=== PATIENT | male | born 1945 | race Caucasian/White ===

== ENCOUNTER 2018-09-10 14:58 | Outpatient (REF) | payer MEDICARE, SELFPAY ==
[2018-09-10 20:48] LABS: ALT 32 U/L (12-78); AST 25 U/L (15-37); Albumin 3.8 g/dL (3.4-5.0); Alkaline Phosphatase 57 U/L (46-116); Anion Gap 7.5 mmol/L (3-11); BUN 24 mg/dL (7-18); Bilirubin, Total 0.6 mg/dL (0.2-1.0); CO2 31.5 mmol/L (21.0-32.0); CREATININE 1.17 mg/dL (0.70-1.30); Calcium 9.5 mg/dL (8.5-10.1); Chloride 103 mmol/L (98-107); Glucose 86 mg/dL (70-100); Potassium 4.2 mmol/L (3.5-5.1); Sodium 142 mmol/L (136-145); TSH (W/Ref FT4) 1.67 uIU/mL (0.358-3.74); Total Protein 7.2 g/dL (6.4-8.2); Vitamin B12 639 pg/mL (193-986)
[2018-09-10 20:55] LABS: ESR 10 MM/HR (1-20)
[2018-09-10 21:33] LABS: C-Reactive Protein 0.07 mg/dL (0.0-0.3); Creatine Kinase 361 U/L (39-308)
[2018-09-13 10:44] LABS: PSA, Screening 2.6 ng/ml (0-6.5)
[2018-09-13 12:13] LABS: Albumin 58.6 % (55.8-66.1); Total Protein 6.9 g/dl (6.3-8.2)
[2018-09-15 08:39] LABS: Methylmalonic Acid 0.14 nmol/mL (<=0.40)
== END 2018-09-10 15:18 ==
LOC: NCHCN 14:58
PROVIDERS: PCP Family Medicine; Visit Provider Family Medicine
DX: E53.8 Deficiency of other specified B group vitamins (principal); G62.9 Polyneuropathy, unspecified; M62.50 Muscle wasting and atrophy, not elsewhere classified, unspecified site; Z12.5 Encounter for screening for malignant neoplasm of prostate
CPT/HCPCS: 80053; 80186; 82550; 84153; 85652; 82607; 84165; 84443; 86140

== ENCOUNTER → 2018-10-18 08:03 | Outpatient (BNVA) | payer MEDICARE, SELFPAY | PROVIDERS: PCP Family Medicine; Referring Provider Family Medicine; Visit Provider Psychiatry & Neurology Neurology | DX: G62.81 Critical illness polyneuropathy (principal); M54.10 Radiculopathy, site unspecified; G61.0 Guillain-Barre syndrome | CPT/HCPCS: 95910; 99205; 99215 ==

== ENCOUNTER 2018-10-18 10:02 | Outpatient (CLI) | payer MEDICARE, SELFPAY ==
[2018-10-19 10:58] LABS: Rheumatoid Factor 157 IU/mL (<12.5)
[2018-10-19 14:55] LABS: ANA Interpretation Negative (NEGAT)
[2018-10-25 16:19] LABS: AGNA-1 Negative titer (<1:240); ANNA-1 Negative titer (<1:240); ANNA-2 Negative titer (<1:240); ANNA-3 Negative titer (<1:240); PCA-1 Negative titer (<1:240); PCA-2 Negative titer (<1:240); PCA-Tr Negative titer (<1:240); Striational (Striated Muscle) Negative titer (<1:120)
== END 2018-10-18 10:22 ==
PROVIDERS: PCP Family Medicine; Visit Provider Psychiatry & Neurology Neurology
DX: G62.81 Critical illness polyneuropathy (principal); G61.0 Guillain-Barre syndrome; M54.10 Radiculopathy, site unspecified
CPT/HCPCS: 36415; 95910; 99215; 83519; 83520; 86038; 86256; 86431

== ENCOUNTER 2018-10-29 02:28 | Outpatient (RCR) | payer MEDICARE, SELFPAY ==
[2018-10-25] MEDS: IMMUNE GLOBULIN 20 GM/200 ML BTL IVPB (07:15)
[2018-10-25 07:21] VITALS: BP 122/79; PULSE 80; TEMP 36.4; O2SAT 96
[2018-10-25] MEDS: IMMUNE GLOBULIN 10 GM/100 ML BTL IVPB (07:26)
[2018-10-25] MEDS: Normal Saline Flush 10 ML SYR IVP (07:32)
[2018-10-25 07:45] VITALS: BP 118/76; BP 125/78; PULSE 72; PULSE 74; RESP 18; TEMP 36.4; O2SAT 95
[2018-10-25 08:29] VITALS: BP 125/81; PULSE 69; RESP 18; TEMP 36.5; O2SAT 97
[2018-10-25 08:59] VITALS: BP 119/79; PULSE 70; RESP 18; TEMP 36.4; O2SAT 98
[2018-10-25 09:29] VITALS: BP 150/81; PULSE 69; RESP 18; TEMP 36.5; O2SAT 97
[2018-10-26 07:06] VITALS: BP 117/76; PULSE 76; RESP 18; TEMP 36.2; O2SAT 96
[2018-10-26] MEDS: IMMUNE GLOBULIN 20 GM/200 ML BTL 4 GM IVPB (07:15)
[2018-10-26] MEDS: IMMUNE GLOBULIN 10 GM/100 ML BTL IVPB (07:15)
[2018-10-26] MEDS: Normal Saline Flush 10 ML SYR IVP (07:21)
[2018-10-26 07:35] VITALS: BP 118/74; PULSE 63; RESP 18; TEMP 36.4; O2SAT 98
[2018-10-26 07:55] VITALS: BP 127/77; PULSE 67; RESP 18; TEMP 36.2; O2SAT 97
[2018-10-26 08:11] VITALS: BP 121/76; PULSE 67; RESP 18; TEMP 36.2; O2SAT 97
[2018-10-26 08:35] VITALS: BP 123/81; PULSE 45; RESP 18; TEMP 36.5; O2SAT 98
[2018-10-26 09:06] VITALS: BP 125/65; PULSE 64; RESP 18; TEMP 36.6; O2SAT 98
[2018-10-26 09:52] LABS: CREATININE 1.14 mg/dL (0.70-1.30)
[2018-10-27 07:08] VITALS: BP 118/77; PULSE 70; TEMP 36.4; O2SAT 97
[2018-10-27] MEDS: Normal Saline Flush 10 ML SYR IVP (07:13)
[2018-10-27] MEDS: IMMUNE GLOBULIN 10 GM/100 ML BTL 4 GM IVPB (07:28)
[2018-10-27] MEDS: IMMUNE GLOBULIN 20 GM/200 ML BTL 4 GM IVPB (07:29)
[2018-10-27 07:40] VITALS: BP 124/77; PULSE 65; TEMP 36.5; O2SAT 97
[2018-10-27 07:57] VITALS: BP 123/79; PULSE 63; TEMP 36.3; O2SAT 96
[2018-10-27 08:25] VITALS: BP 123/77; PULSE 58; TEMP 36.1; O2SAT 96
[2018-10-27 09:07] VITALS: BP 140/78; PULSE 61; TEMP 36.4; O2SAT 98
[2018-10-28] MEDS: IMMUNE GLOBULIN 10 GM/100 ML BTL IVPB (07:09)
[2018-10-28 07:10] VITALS: BP 122/77; PULSE 74; RESP 18; TEMP 36; O2SAT 97
[2018-10-28] MEDS: IMMUNE GLOBULIN 20 GM/200 ML BTL IVPB (07:10)
[2018-10-28] MEDS: Normal Saline Flush 10 ML SYR IVP (07:12)
[2018-10-28 07:25] VITALS: BP 132/77; PULSE 70; RESP 18; TEMP 36.3; O2SAT 98
[2018-10-28 08:00] VITALS: BP 125/82; PULSE 64; TEMP 36.3; O2SAT 96
[2018-10-28 08:30] VITALS: BP 125/82; PULSE 71; TEMP 36.4; O2SAT 98
[2018-10-29] MEDS: Normal Saline Flush 10 ML SYR IVP (07:04)
[2018-10-29] MEDS: IMMUNE GLOBULIN 20 GM/200 ML BTL IVPB (07:13)
[2018-10-29] MEDS: IMMUNE GLOBULIN 10 GM/100 ML BTL IVPB (07:13)
[2018-10-29 07:14] VITALS: BP 131/86; PULSE 71; TEMP 36.2; O2SAT 96
[2018-10-29 07:26] LABS: CREATININE 1.14 mg/dL (0.70-1.30)
[2018-10-29 07:32] VITALS: BP 125/82; PULSE 74; RESP 18; TEMP 36.4; O2SAT 97
[2018-10-29 07:45] VITALS: BP 133/87; PULSE 63; RESP 18; TEMP 36.2; O2SAT 98
[2018-10-29 08:26] VITALS: BP 134/79; PULSE 60; TEMP 36.1; O2SAT 97
[2018-11-03 18:02] LABS: IgG Asialo. GM1 Negative (Negative); IgG Disialo. GD1b Negative (Negative); IgG Monos. GM1 Negative (Negative); IgM Asialo. GM1 Negative (Negative); IgM Disialo. GD1b Negative (Negative); IgM Monos. GM1 Negative (Negative)
== END 2018-11-14 23:59 | disposition home or self-care (01) ==
LOC: INF 02:28
PROVIDERS: Psychiatry & Neurology Neurology; PCP Family Medicine; Visit Provider Internal Medicine
DX: G61.81 Chronic inflammatory demyelinating polyneuritis (principal)
CPT/HCPCS: 36415; 96365; 96366; 82565; 83520; J1561

== ENCOUNTER → 2018-11-11 13:35 | Outpatient (BNVA) | payer MEDICARE, SELFPAY | PROVIDERS: PCP Family Medicine; Visit Provider Psychiatry & Neurology Neurology | DX: G62.81 Critical illness polyneuropathy (principal); M65.20 Calcific tendinitis, unspecified site; M62.59 Muscle wasting and atrophy, not elsewhere classified, multiple sites; R53.1 Weakness | CPT/HCPCS: 99214 ==

== ENCOUNTER 2019-07-04 03:46 | Outpatient (CLI) | payer MEDICARE, SELFPAY ==
--- NOTE | 2019-07-04 | PFT_ITS ---
PULMONARY FUNCTION TEST REPORT Patient - Reji Landrum DATE OF SERVICE July 04, 2019 REQUESTING PROVIDER Maria Luisa Little M.D. INTERPRETATION OF STUDY Spirometry shows no evidence of obstructive airways disease. No bronchodilator response. Respiratory neuromuscular function testing shows extremely low MIP and MEP at 38 and 32% predicted respectively. MVV is normal. LUNG VOLUMES - Lung volumes show no evidence of restriction. DIFFUSION CAPACITY- Normal. AIRWAY RESISTANCE - Normal. IMPRESSION No evidence of obstructive or restrictive pattern, however, there is severe respiratory and neuromuscular weakness with very low MIP and MEP. Clinical correlation recommended. Raisa White M.D. JHON/ T- 07/07/19
[2019-07-04] MEDS: Albuterol HFA 18 GM 200 PUFF INH IH (08:52)
[2019-07-04] MEDS: Inhaler, Assist Device 1 EACH MC (08:52)
== END 2019-07-04 04:06 ==
PROVIDERS: PCP Family Medicine; Visit Provider Family Medicine
DX: G70.9 Myoneural disorder, unspecified (principal); R06.00 Dyspnea, unspecified; Z87.891 Personal history of nicotine dependence
CPT/HCPCS: 94060; 94726; 94729

== ENCOUNTER → 2019-09-29 08:40 | Outpatient (BNVA) | payer MEDICARE, SELFPAY | PROVIDERS: PCP Family Medicine; Referring Provider Family Medicine; Visit Provider Psychiatry & Neurology Neurology | DX: G12.21 Amyotrophic lateral sclerosis (principal) | CPT/HCPCS: 62270; 99213 ==

== ENCOUNTER 2019-12-02 10:43 | Outpatient (REF) | payer MEDICARE, SELFPAY ==
[2019-12-02 20:25] LABS: Abs Immature Grans 0.01 k/cumm (0.0-0.09); Absolute Basophil Count 0.03 k/cumm (0.0-0.2); Absolute Lymphocyte Count 2.27 k/cumm (1.2-3.4); Absolute Monocyte Count 0.64 k/cumm (0.11-0.7); Absolute Neutrophil Count 5.04 k/cumm (1.2-6.7); Basophils % 0.4; Eosinophils % 1.2; HCT 48.2 % (40.0-50.0); HGB 16.3 g/dL (13.5-17.5); Immature Grans % 0.1 %; Lymphocytes % 28.1; Mean Corp. HGB Concentration 33.8 g/dL (32.0-36.0); Mean Corpuscular Hemoglobin 32.4 pg (27.0-33.0); Mean Corpuscular Volume 95.8 fL (80-95); Mean Platelet Volume 12.4 fL (8.0-11.0); Monocytes % 7.9; Neutrophils % 62.3; Platelet Count 231 x1000/uL (130-400); RBC 5.03 m/cumm (4.50-6.00); RBC Distribution Width 13.7 % (11.8-14.1); White Blood Cell Count 8.09 k/cumm (4.4-10.8)
[2019-12-02 20:36] LABS: Anion Gap 5.8 mmol/L (3-11); BUN 17 mg/dL (7-18); C-Reactive Protein 0.07 mg/dL (0.0-0.3); CO2 31.2 mmol/L (21.0-32.0); CREATININE 1.04 mg/dL (0.70-1.30); Calcium 9.3 mg/dL (8.5-10.1); Chloride 102 mmol/L (98-107); Creatine Kinase 180 U/L (39-308); Glucose 101 mg/dL (74-106); Potassium 4.4 mmol/L (3.5-5.1); Sodium 139 mmol/L (136-145)
[2019-12-02 21:12] LABS: ESR 5 mm/hr (1-20)
[2019-12-04 20:01] LABS: Rheumatoid Factor 42.4 IU/mL (<12.0)
[2019-12-05 10:39] LABS: Lyme Ab w Rflx to Lyme Confirm Negative (Negative)
[2019-12-05 11:07] LABS: HIV-1/2 Ag & Ab Screen Negative (Negative)
[2019-12-06 19:02] LABS: Anaplasma phagocytophilum Negative (Negative); B. miyamotoi PCR Negative (Negative); Babesia divergens/MO-1 Negative (Negative); Babesia duncani Negative (Negative); Babesia microti Negative (Negative); Ehrlichia chaffeensis Negative (Negative); Ehrlichia ewingii/canis Negative (Negative); Ehrlichia muris eauclairensis Negative (Negative)
[2019-12-07 13:03] LABS: Testosterone, Free 10.1 ng/dL (3.28-12.2); Testosterone, Total 597 ng/dL (240-950)
== END 2019-12-02 11:03 ==
LOC: NCHCN 10:43
PROVIDERS: PCP Family Medicine; Visit Provider Family Medicine
DX: G70.9 Myoneural disorder, unspecified (principal); M62.50 Muscle wasting and atrophy, not elsewhere classified, unspecified site; G62.9 Polyneuropathy, unspecified; Z00.00 Encounter for general adult medical examination without abnormal findings
CPT/HCPCS: 80048; 82550; 84402; 84403; 85652; 87389; 87798; 85025; 86140; 86431; 86618

== ENCOUNTER 2020-06-22 01:40 | Outpatient (CLI) | payer MEDICARE, SELFPAY ==
[2020-06-23 11:31] LABS: COVID-19 RT-PCR UVMMC Result Negative (Negative)
== END 2020-06-22 01:41 | disposition home or self-care (01) ==
LOC: LBO 01:40
PROVIDERS: PCP Family Medicine; Visit Provider Family Medicine
DX: Z20.822 Contact with and (suspected) exposure to COVID-19 (principal); Z01.818 Encounter for other preprocedural examination
CPT/HCPCS: U0003; U0005

== ENCOUNTER 2020-06-25 03:39 | Outpatient (CLI) | payer MEDICARE, SELFPAY ==
--- NOTE | 2020-06-27 14:57 | W.PFT ---
Date of service: 06/25/20 Time of Service: 12:55 Pulmonary Function Test Result Interpretation Spirometry: Shows extremely severe respiratory neuromuscular weakness with an MIP of 37%, MEP 23%, though MVV is normal Impression extremely severe respiratory neuromuscular weakness with an MIP of 37%, MEP 23%, though MVV is normal. When compared to previous test done 07/04/2019, the patient has a fairly stable MIP, somewhat declining MEP and fairly stable MVV Clinical Correlation therefore is recommended.
== END 2020-06-25 03:40 | disposition home or self-care (01) ==
LOC: RT 03:39
PROVIDERS: PCP Family Medicine; Visit Provider Internal Medicine
DX: M62.58 Muscle wasting and atrophy, not elsewhere classified, other site (principal); J98.8 Other specified respiratory disorders; G70.89 Other specified myoneural disorders
CPT/HCPCS: 94200